=== PATIENT | female | born 1995 | race Caucasian/White ===

== ENCOUNTER 2017-02-24 23:12 | Observation (INO) | payer MEDICAID ==
[~2017-02-24] VITALS: Ht 157.5 cm; Wt 64.4 kg
[2017-02-25] MEDS ORDERED: FOLI-43 PO (00:14)
== END 2017-02-25 00:30 | disposition home or self-care (01) ==
LOC: L&D 23:12
PROVIDERS: ADMIT Obstetrics & Gynecology; ATTEND Obstetrics & Gynecology
DX: O62.9 Abnormality of forces of labor, unspecified (principal); O26.893 Other specified pregnancy related conditions, third trimester; R10.9 Unspecified abdominal pain; Z3A.37 37 weeks gestation of pregnancy
CPT/HCPCS: 99281; G0378